=== PATIENT | female | born 1950 | race Caucasian/White ===

== ENCOUNTER 2016-10-25 15:25 | Emergency (ER) | payer MEDICARE, OTHER ==
[2016-10-25] MEDS ORDERED: Ketorolac 60 MG/2 ML SDV IM ONE (16:16)
--- NOTE | 2016-10-25 16:26 | EDM.PDOC ---
ED HPI GENERAL MEDICAL PROBLEM - General Chief Complaint: Lower Extremity Injury/Pain Stated Complaint: DIALYSIS PT Time Seen by Provider: 10/25/16 16:00 Source of Information: Reports: Patient History Limitations: Reports: No Limitations - History of Present Illness INITIAL COMMENTS - FREE TEXT/NARRATIVE: History of present illness: [66 year old female comes in with complaints of pain to left ankle. Patient indicates that she tripped and fell over her small dog, subsequently twisting her left ankle which is now swollen and painful to] Review of systems: As per history of present illness and below otherwise all systems reviewed and negative. Past medical history: As per history of present illness and as reviewed below otherwise noncontributory. Surgical history: As per history of present illness and as reviewed below otherwise noncontributory. Social history: No reported history of drug or alcohol abuse. Family history: As per history of present illness and as reviewed below otherwise noncontributory. Physical exam: HEENT: Atraumatic, normocephalic, pupils reactive, negative for conjunctival pallor or scleral icterus, mucous membranes moist, throat clear, neck supple, nontender, trachea midline. Lungs: Clear to auscultation, breath sounds equal bilaterally, chest nontender. Heart: S1S2, regular, negative for clicks, rubs, or JVD. Abdomen: Soft, nondistended, nontender. Negative for masses or hepatosplenomegaly. Negative for costovertebral tenderness. Pelvis: Stable nontender. Genitourinary: Deferred. Rectal: Deferred. Extremities: Left ankle with a mild amount of swelling around bilateral malleolus, negative for cords or calf pain. Neurovascular unremarkable. Neuro: Awake, alert, oriented. Cranial nerves II through XII unremarkable. Cerebellum unremarkable. Motor and sensory unremarkable throughout. Exam nonfocal. Diagnostics: [X-ray left ankle] Therapeutics: Toradol 60 mg IM] Impression: [Ankle pain] Plan: [Francis wrap] Definitive disposition and diagnosis as appropriate pending reevaluation and review of above. Left Ankle Pain Score (Numeric/FACES): 6 - Related Data Allergies Allergy/AdvReac Type Severity Reaction Status Date / Time penicillin G Allergy Hives Verified 10/25/16 15:41 penicillin G procaine Allergy Hives Verified 10/25/16 15:41 penicillin V Allergy Hives Verified 10/25/16 15:41 Penicillins Allergy Hives Verified 10/25/16 15:41 Home Meds: Home Meds Acetaminophen/oxyCODONE [Percocet 325-5 MG] 1 tab PO Q6H PRN 10/25/16 [History] Allopurinol [Zyloprim] 100 mg PO DAILY 10/25/16 [History] Aspirin 81 mg PO BRK 10/25/16 [History] Citalopram [Celexa] 10 mg PO DAILY 10/25/16 [History] Folic Acid/Vitamin B Comp W-C [Renal Caps Softgel] 1 cap PO DAILY 10/25/16 [ History] Insulin Glarg,Human.Rec.Analog [LantUS Solostar] 25 units SUBCUT BEDTIME [History] Lanthanum Carbonate [Fosrenol] 1,000 mg PO TID 10/25/16 [History] Mycophenolate Mofetil [Cellcept] 250 mg PO BID 10/25/16 [History] Pantoprazole [ProTONIX] 40 mg PO ACBREAKFAST 10/25/16 [History] Tacrolimus [Prograf] 1 mg PO BID 10/25/16 [History] Past Medical History Cardiovascular History: Reports: Hypertension Respiratory History: Reports: COPD Other Respiratory History: on home CPAP Gastrointestinal History: Reports: None Endocrine/Metabolic History: Reports: Diabetes, Type II - Infectious Disease History Infectious Disease History: Reports: Chicken Pox - Past Surgical History HEENT Surgical History: Reports: Adenoidectomy, Tonsillectomy Other GI Surgeries/Procedures: liver transplant Social & Family History - Family History Family Medical History: Noncontributory - Tobacco Use Smoking Status *Q: Never Smoker Second Hand Smoke Exposure: No - Caffeine Use Caffeine Use: Reports: None - Recreational Drug Use Recreational Drug Use: No Review of Systems - Review of Systems Review Of Systems: See Below (The history of present illness) ED EXAM, GENERAL - Physical Exam Exam: See Below (See history of present illness) Course - Vital Signs Last Recorded V/S: Last Vital Signs Temp 36.4 C 10/25/16 15:37 Pulse 112 H 10/25/16 15:37 Resp 20 10/25/16 15:37 BP 138/51 L 10/25/16 15:37 Pulse Ox 94 L 10/25/16 15:37 - Orders/Labs/Meds Orders: Active Orders 24 hr Category Date Time Status Ankle Min 3V Lt [CR] Stat Exams 10/25/16 16:16 Taken Meds: Medications Discontinued Medications Generic Name Dose Route Start Last Admin Trade Name Mary PRN Reason Stop Dose Admin Ketorolac Tromethamine 60 mg 10/25/16 16:16 10/25/16 16:30 Toradol IM 10/25/16 16:17 60 mg ONETIME ONE Administration Departure - Departure Time of Disposition: 17:10 Disposition: Home, Self-Care 01 Condition: good Clinical Impression: Ankle pain, left - Discharge Information Forms: ED Department Discharge Additional Instructions: The following information is given to patients seen in the emergency department who are being discharged to home. This information is to outline your options for follow-up care. We provide all patients seen in our emergency department with a follow-up referral. The need for follow-up, as well as the timing and circumstances, are variable depending upon the specifics of your emergency department visit. If you don't have a primary care physician on staff, we will provide you with a referral. We always advise you to contact your personal physician following an emergency department visit to inform them of the circumstance of the visit and for follow-up with them and/or the need for any referrals to a consulting specialist. The emergency department will also refer you to a specialist when appropriate. This referral assures that you have the opportunity for follow-up care with a specialist. All of these measure are taken in an effort to provide you with optimal care, which includes your follow-up. Under all circumstances we always encourage you to contact your private physician who remains a resource for coordinating your care. When calling for follow-up care, please make the office aware that this follow-up is from your recent emergency room visit. If for any reason you are refused follow-up, please contact the [facility] Emergency Department at and asked to speak to the emergency department charge nurse. Followup with your primary care provider one to 2 days Keep leg elevated as much as possible you may alternate ice and heat as feels good no longer than 20 minutes at a time Return to to ED as needed as discussed - My Orders Last 24 Hours: My Active Orders 10/25/16 16:16 Ankle Min 3V Lt [CR] Stat - Assessment/Plan Last 24 Hours: My Active Orders 10/25/16 16:16 Ankle Min 3V Lt [CR] Stat
[2016-10-25 17:29] VITALS: BP 128/96
--- NOTE | 2016-10-28 13:15 | CR ---
EXAM DATE: 10/25/16 PATIENT'S AGE: 66 Patient: ALEXSANDRA VILLANUEVA Facility: [place], [place] Site . Site : [id number] Study: XRay Extremity ankle [id number]/2/2017 4:44:37 PM Ordering Physician: Doctor Bryant Final Report: INDICATION: tripped TECHNIQUE: Three views of the left ankle. Overlying artifact degrades evaluation COMPARISON: None FINDINGS: Bones: Enthesophyte formation along the plantar aspect of the calcaneus. No fractures or bone lesions. Joint spaces: Degenerative changes. Soft tissues: Unremarkable. IMPRESSION: No acute bony abnormality. Dictated by Raman Escamilla MD @ 10/25/2016 5:02:57 PM Dictated by: Raman Escamilla MD @ 10/25/2016 17:03:06 (Electronic Signature) Report Signed by Proxy. TAISHA
== END 2016-10-25 17:19 | disposition home or self-care (01) ==
LOC: MW.ED 15:25
DX: M25.572 Pain in left ankle and joints of left foot (principal); I10 Essential (primary) hypertension; J44.9 Chronic obstructive pulmonary disease, unspecified; E11.9 Type 2 diabetes mellitus without complications; Z98.890 Other specified postprocedural states; Z94.4 Liver transplant status; Z79.82 Long term (current) use of aspirin; Z79.899 Other long term (current) drug therapy; Z79.4 Long term (current) use of insulin; Z88.0 Allergy status to penicillin
CPT/HCPCS: 73610; 96372; 99283; J1885